=== PATIENT | male | born 1960 | race Caucasian/White ===

== ENCOUNTER 2025-04-07 08:51 | Day surgery (SDC) | payer OTHER ==
[2025-04-07 10:10] VITALS: BMI 34.3
[2025-04-07] MEDS ORDERED: MIDAZOLAM HCL 2 MG/2 ML SINGLE DOSE VIAL ONE ×3 (10:14→12:07)
[2025-04-07] MEDS ORDERED: ONDANSETRON 4 MG/2 ML VIAL IVPUSH PRN ×2 (10:51→14:15)
[2025-04-07] MEDS ORDERED: oxyCODONE HCL 5 MG TABLET PO PRN ×2 (10:51)
[2025-04-07] MEDS ORDERED: VANCOMYCIN 1,000 MG VIAL (RESTRICTED TO ID ONLY) ONE (10:54)
[2025-04-07] MEDS ORDERED: DEXAMETHASONE SOD PHOSPHATE 10 MG/1 ML VIAL ONE (10:54)
[2025-04-07] MEDS ORDERED: ROPIVACAINE HCL/PF 100 MG/20 ML VIAL ONE (10:54)
[2025-04-07] MEDS ORDERED: BUPIVACAINE HCL/PF 0.5% (5MG/ML) 10 ML VIAL ONE (11:25)
[2025-04-07] MEDS ORDERED: TRANEXAMIC ACID 1000 MG/10 ML VIAL ONE (11:47)
[2025-04-07] MEDS ORDERED: GLYCOPYRROLATE 0.2 MG/1 ML VIAL ONE (11:47)
[2025-04-07] MEDS ORDERED: ONDANSETRON 4 MG/2 ML VIAL ONE (11:47)
[2025-04-07] MEDS ORDERED: ceFAZolin SODIUM 1 GM VIAL ONE (11:47)
[2025-04-07] MEDS ORDERED: PHENYLEPHRINE HCL 10 MG/1 ML SINGLE DOSE VIAL ONE (11:47)
[2025-04-07] MEDS ORDERED: PROPOFOL 20 ML ONE ×2 (12:20→13:35)
[2025-04-07] MEDS ORDERED: BUPIVICAINE 0.25%/MORPH PF/KETOROLAC - 51ML DISP.SYRINGE IA ONE (12:54)
[2025-04-07] MEDS ORDERED: MAG HYDROX/AL HYDROX/SIMETH 30 ML UNIT-DOSE CUP PO PRN (14:15)
[2025-04-07] MEDS ORDERED: KETOROLAC TROMETHAMINE 30 MG/1 ML VIAL ONE (14:52)
[2025-04-07] MEDS: KETOROLAC TROMETHAMINE 30 MG/1 ML VIAL IVPUSH SCH (14:55)
[2025-04-07] MEDS: ACETAMINOPHEN 1000 MG/100 ML BAG IVPB ONE (15:00)
[2025-04-07] MEDS: ACETAMINOPHEN 500 MG TABLET (FP) PO SCH (17:50)
[2025-04-07] MEDS: CEFAZOLIN 2 GM/D5W 2 GRAM/50 ML ML IVPB SCH (17:51)
[2025-04-07] MEDS: LACTATED RINGERS SOLUTION 1,000 ML IV SCH ×2 (19:27→19:28)
[2025-04-07] MEDS: GABAPENTIN 300 MG CAPSULE PO SCH (21:20)
[2025-04-07] MEDS: SENNOSIDES/DOCUSATE COMBO (SENNA PLUS) TABLET (UD) PO SCH (21:20)
[2025-04-07] MEDS: oxyCODONE HCL 10 MG SUSTAINED ACTING TABLET PO SCH (21:20)
[2025-04-07 22:38] VITALS: RESP 18
[2025-04-08 08:14] LABS: HEMATOCRIT 40.9 % (40.1-51.0); HEMOGLOBIN 13.4 g/dL (13.7-17.5); MCHC 32.8 g/dl (32.3-36.5); MEAN CELL VOLUME 79.4 fl (79.0-92.2); MEAN PLT VOLUME 10.2 fl (9.4-12.4); PLATELET COUNT 238 x10^3/uL (163-337); RDW 15.3 % (12.2-16.4)
[2025-04-08 09:04] LABS: CALCIUM 8.5 mg/dl (8.5-10.1); POTASSIUM 4.3 mmol/L (3.5-5.1)
[2025-04-08] MEDS: EMPAGLIFLOZIN (JARDIANCE) 10 MG TABLET PO SCH (09:22)
[2025-04-08] MEDS: PANTOPRAZOLE 40 MG TABLET PO SCH (09:22)
[2025-04-08] MEDS: MULTIVITAMINS (DAILY MVI) TABLET (FP) PO SCH (09:22)
[2025-04-08] MEDS: ASPIRIN COATED 81 MG TABLET.EC PO SCH (09:22)
[2025-04-08] MEDS: LOSARTAN POTASSIUM 25 MG TABLET PO SCH (09:22)
[2025-04-08 14:16] VITALS: BP 119/63; PULSE 80; TEMP 98.2
== END 2025-04-08 18:27 | disposition home health service (06) ==
LOC: FASUSAT 08:51 → FM/S 15:25 → FASUSAT 04-08 18:27
PROVIDERS: ATTEND Orthopaedic Surgery Sports Medicine
PROC: 8E0Y0CZ Robotic Assisted Procedure of Lower Extremity, Open Approach (ICD-10-PCS; 2025-04-07)
PROC: 0SR9039 Replacement of Right Hip Joint with Ceramic Synthetic Substitute, Cemented, Open Approach (ICD-10-PCS; principal; 2025-04-07 12:07)
DX: M16.11 Unilateral primary osteoarthritis, right hip (principal)
CPT/HCPCS: 36415; 73502-TC-RT-FY; 80048; 82962; 85027; 88305-TC; 88311-TC; 94760; 97010-GP; 97116-GP; 97162-GP; C1713; C1776; J0131; J1100